=== PATIENT | female | born 1955 | race Caucasian/White ===

== ENCOUNTER → 2023-05-30 | Emergency (ER) | payer BC, OTHER ==
[~2023-05-30] VITALS: Ht 160 cm; Wt 60.8 kg
[~2023-05-30] MED LIST: HYDROcodone/ACETAMIN 5-325 MG TAB (NORCO/ VICODIN) PO ONE; NABU-140 PO; cefTRIAXone 1 GM VIAL ONE
[2023-05-30 22:48] VITALS: BP_SYST 154; PULSE 90; RESP 20; TEMP 98.5; O2SAT 98
== END | disposition home or self-care (01) ==
LOC: SED 22:25
DX: S52.612A Displaced fracture of left ulna styloid process, initial encounter for closed fracture (principal); Z79.899 Other long term (current) drug therapy; W18.40XA Slipping, tripping and stumbling without falling, unspecified, initial encounter; Y93.89 Activity, other specified; Y92.89 Other specified places as the place of occurrence of the external cause; Y99.8 Other external cause status
CPT/HCPCS: 99283